=== PATIENT | female | born 1995 | race Caucasian/White ===

== ENCOUNTER → 2020-01-31 | Outpatient (CLI) | payer OTHER ==
[~2020-01-31] MED LIST: AUGMENTIN 875875 MG PO; BACTRIM DS 8001 TA1 PO; BIRTH CONTROL1 EAC1 PO; CLARITIN10 MG PO; DIFLUCAN150 MG PO; FIORICET 325 MG1 TAB PO; FLONASE0.05 MG/AC NS; IBU-8800 MG PO; MOTRIN800 MG PO; NAPROXEN500 MG PO; NASONEX0.05 MG/AC NS; SEASONIQUE1 TA1 PO; WELLBUTRIN XL150 MG PO; ZITHROMAX Z PA250 MG PO; ZYRTEC-D 12HR 51 TER PO; ZYRTEC10 M1 PO
== END | disposition home or self-care (01) ==
LOC: US 14:07
DX: Z33.1 Pregnant state, incidental (principal); Z3A.16 16 weeks gestation of pregnancy

== ENCOUNTER → 2020-03-08 | Outpatient (CLI) | payer OTHER | END | disposition home or self-care (01) | LOC: US 14:00 | DX: Z34.02 Encounter for supervision of normal first pregnancy, second trimester (principal); Z3A.20 20 weeks gestation of pregnancy ==

== ENCOUNTER → 2020-03-25 | Outpatient (CLI) | payer OTHER | END | disposition home or self-care (01) | LOC: US 13:00 | DX: Z34.02 Encounter for supervision of normal first pregnancy, second trimester (principal); Z3A.23 23 weeks gestation of pregnancy ==

== ENCOUNTER → 2020-06-13 | Outpatient (CLI) | payer OTHER | END | disposition home or self-care (01) | LOC: US 12:22 | PROVIDERS: ATTEND Nurse Practitioner Women's Health | DX: Z34.03 Encounter for supervision of normal first pregnancy, third trimester (principal); Z3A.35 35 weeks gestation of pregnancy ==

== ENCOUNTER → 2020-07-08 | Outpatient (CLI) | payer OTHER | END | disposition home or self-care (01) | LOC: US 15:18 | PROVIDERS: ATTEND Nurse Practitioner Family | DX: O22.23 Superficial thrombophlebitis in pregnancy, third trimester (principal); Z3A.38 38 weeks gestation of pregnancy ==

== ENCOUNTER 2020-07-10 12:04 | Emergency (ER) | payer OTHER ==
[~2020-07-10] VITALS: Ht 167.6 cm; Wt 116.1 kg
[2020-07-10 14:58] VITALS: BP 140/98
== END 2020-07-10 15:06 | disposition home or self-care (01) ==
LOC: ED 12:04
DX: I80.9 Phlebitis and thrombophlebitis of unspecified site (principal); G43.909 Migraine, unspecified, not intractable, without status migrainosus; Z79.899 Other long term (current) drug therapy

== ENCOUNTER → 2020-10-15 | Outpatient (CLI) | payer OTHER ==
[2020-10-16 16:07] LABS: ANTICARDIOLIPIN AB, IGG, QN <9 GPL U/mL (0-14); ANTICARDIOLIPIN AB, IGM, QN <9 MPL U/mL (0-12)
[2020-10-17 02:05] LABS: BETA-2 GLYCOPROTEIN I AB,IGG <9 (0-20); BETA-2 GLYCOPROTEIN I AB,IGM <9 (0-32)
[2020-10-17 03:05] LABS: ANTI-THROMBIN III ACTIVITY 117 % (75-135); PROTEIN C, ACTIVITY 144 % (73-180); PROTEIN S - FUNCTIONAL 123 % (63-140)
== END | disposition home or self-care (01) ==
LOC: LAB 10:13
PROVIDERS: ATTEND Obstetrics & Gynecology
DX: I80.9 Phlebitis and thrombophlebitis of unspecified site (principal)